=== PATIENT | female | born 1990 | race Caucasian/White ===

== ENCOUNTER → 2020-11-25 13:10 | Outpatient (CLI) | payer BC, SELFPAY ==
--- NOTE | ~2020-11-25 | US_ITS ---
US breast LT complete 11/25/2020 13:35 Indication: Palpable left breast mass. Left breast pain for one week. Procedure: High-resolution Limited ultrasound of the left breast Comparison: No prior studies for comparison. Findings: No discrete mass identified in the area of palpable concern at 4:00. At 12:00, 7 cm from th e nipple, there is an 8 mm intramammary lymph node. Impression: 1: No sonographic evidence for malignancy in the left breast. No correlate to palpable abnormality. BI-RADS CATEGORY 2 - BENIGN FINDINGS Reviewed, dictated and finalized at location A. UNICATION COORDINATOR Impression: 1: No sonographic evidence for malignancy in the left breast. No correlate to p alpable abnormality. BI-RADS CATEGORY 2 - BENIGN FINDINGS
== END ==
PROVIDERS: Visit Provider Obstetrics & Gynecology Gynecology
DX: N63.23 Unspecified lump in the left breast, lower outer quadrant (principal)
CPT/HCPCS: 76641

== ENCOUNTER 2021-08-11 10:07 | Outpatient (RCR) | payer BC, SELFPAY | END 2021-11-09 23:59 | disposition home or self-care (01) | LOC: ANHLAB 10:07 | PROVIDERS: PCP Nurse Practitioner; Visit Provider Obstetrics & Gynecology Gynecology | DX: O26.851 Spotting complicating pregnancy, first trimester (principal); Z3A.00 Weeks of gestation of pregnancy not specified | CPT/HCPCS: 36415; 84702 ==

== ENCOUNTER 2021-08-11 10:52 | Emergency (ER) | payer BC, SELFPAY ==
--- NOTE | ~2021-08-11 | US_ITS ---
EXAMINATION: US OB <= 14 weeks fetus EXAM DATE: 08/11/2021 13:59 INDICATION: , vaginal bleeding. 1st trimester. TECHNIQUE: Pelvic obstetrical transabdominal sonogram was performed by a technologist. There are mu ltiple grayscale and Doppler images available for interpretation. There are no earlier studies of th is gestation for comparison. FINDINGS: Uterus measures 9.3 x 5.3 x 4.0 cm. There is intrauterine gestation sac. The 5 mm mean sa c diameter corresponds to estimated gestational age by ultrasound of 5 weeks 0 days. Yolk sac is bob ntified. No pole identified at this time. There is no sonographic evidence of subchorionic hemo rrhage. Left ovary morphologically normal, right not identified. Small to moderate free pelvic flu id in the cul-de-sac. IMPRESSION: Intrauterine gestation sac. No pole identified, or would be expected for gestation sac this small. Consider 2 week follow-up pelvic sonogram. Reviewed, dictated and finalized at location B. IMPRESSION: Intrauterine gestation sac. No pole identified, or would be expected for gestation sac this small. Consider 2 week follow-up pelvic sonogrrobbin churchill
[2021-08-11 11:00] VITALS: BP 142/107; PULSE 84; RESP 20; TEMP 36.9; O2SAT 100
[2021-08-11 11:16] VITALS: BP 109/84; PULSE 97; RESP 18; O2SAT 100
[2021-08-11 11:45] LABS: Add Urine Microscopic? YES; Appearance Urine Clear (Clear); Bacteria Urine Trace /hpf; Bilirubin Urine Negative (Negative); Blood Urine 2+ (Negative); Color Urine Straw (Yellow); Glucose Urine UA Negative (Negative); Ketones Urine Negative (Negative); Leukocyte Esterase Ur Negative LEU/UL (Negative); Nitrate Urine Negative (Negative); Protein Urine Negative (Negative); RBC Urine 0-2 /hpf (0-2); Specific Grav Ur 1.005 (1.001-1.035); Urobilinogen Urine Negative mg/dL (<2.0); WBC Urine 0-3 /hpf
[2021-08-11 12:08] LABS: Basophils Absolute Auto 0.1 K/mm3 (0.0-0.1); Basophils Percent Auto 0.6 % (0.2-1.2); Eosinophils Absolute Auto 0.2 K/mm3 (0-0.3); Eosinophils Percent Auto 1.9 % (0-4.4); Hematocrit 42.6 % (37.0-47.0); Immature Granulocyte Absolute 0.01 K/mm3 (0.00-0.031); Immature Granulocyte Percent A 0.1 % (0-0.5); Lymphocytes Absolute Auto 2.39 K/mm3 (0.9-3.2); Lymphocytes Percent Auto 28.5 % (18.3-44.2); Mean Corpuscular HGB Conc 32.9 g/dl (32-36); Mean Corpuscular Hemoglobin 29.9 pg (26-34); Mean Corpuscular Volume 90.8 fl (80-100); Monocytes Absolute Auto 0.6 K/mm3 (0.1-0.6); Monocytes Percent Auto 7.4 % (2.6-8.5); Neutrophils Absolute Auto 5.2 K/mm3 (1.3-6.7); Neutrophils Percent Auto 61.5 % (45.5-73.1); Platelet Count Result 225 k/mm3 (150-375); Red Blood Count 4.69 M/mm3 (4.2-5.4); Red Cell Distribution Width 12.6 % (11.5-14.5); White Blood Count 8.4 K/mm3 (4.5-10.0)
--- NOTE | 2021-08-11 12:34 | PC.NURSE ---
Pelvic exam completed by Dr Barrett. RN at bedside during exam.
--- NOTE | 2021-08-11 12:51 | PC.NURSE ---
Called lab to request add on of beta HCG
--- NOTE | 2021-08-11 12:56 | PC.NURSE ---
Patient drinking water in anticipation for US. Instructed not to void prior to test.
--- NOTE | 2021-08-11 13:12 | ED.FEMALEGU ---
HPI - Female Genitourinary General Chief complaint: Vaginal Bleeding Stated complaint: 5Weeks , spotting Time Seen by Provider: 08/11/21 11:20 Source: patient Mode of arrival: ambulatory Limitations: no limitations History of Present Illness HPI Narrative: 31-year-old female G2, P1 Believed to be about 5 weeks by dates Had some light vaginal spotting or brownish discharge this morning No significant urinary symptoms but has some mild poorly localized crampy discomfort She contacted her OB office and they got some labs ordered which are not yet returned Related Data Home Medications Medication Instructions Recorded Confirmed cholecalciferol (vitamin D3) PO 07/21/21 docosahexaenoic acid 200 mg capsule mg PO 07/21/21 Allergies Allergy/AdvReac Type Severity Reaction Status Date / Time Sulfa (Sulfonamide Allergy Unknown Itching Verified 08/11/21 11:21 Antibiotics) Review of Systems Review of Systems: All systems reviewed & are unremarkable except as noted in HPI and below Constitutional: Constitutional: Reports no additional constitutional complaints, Denies chills, Denies fever(s) and Denies headache(s) ENT: Denies headache(s) Cardiovascular: Cardiovascular: Denies dyspnea Gastrointestinal: Gastrointestinal: Reports abdominal pain, Denies diarrhea, Denies nausea and Denies vomiting Genitourinary: Genitourinary: Reports abnormal vaginal bleeding, Denies urinary frequency, Denies nocturia and Denies dysuria Musculoskeletal: Musculoskeletal: Denies deformity and Denies numbness Integumentary/Breasts: Skin/Breast: Denies wounds [facility] Social History Social History (Updated 07/21/21 @ 13:10 by Brianna Moore, [facility]) Smoking status: Never smoker Alcohol intake: current Substance use: never Exam Const: General: cooperative, healthy appearing, no acute distress and alert Orientation/consciousness: patient oriented x3 (alert) HENMT: Head: normal to inspection, normocephalic and atraumatic Ears: external ears normal Eyes: Conjunctivae: conjunctivae normal EOM: EOMs intact bilaterally Neck: Neck: supple and no JVD Resp: Effort & Inspection: normal respiratory effort and not labored Auscultation: other (BS =) GI: GI Palp: Yes Soft to palpation and No Tenderness to palpation present (GI) : Speculum Exam - Cervix: normal appearance of the cervix and Cervical os closed Other: Small amount of brownish discharge, no bleeding or tissue from os Skin: General skin exam: normal color and no rashes or lesions noted Neuro: General: patient oriented x3 (alert) Speech: normal speech Psych: Affect: normal affect Course Vital Signs Vital signs: Vital Signs Temperature 36.9 C 08/11/21 11:00 Pulse Rate 84 08/11/21 11:00 Respiratory Rate 20 08/11/21 11:00 Blood Pressure 142/107 H 08/11/21 11:00 Pulse Oximetry 100 08/11/21 11:00 Temperature 36.9 C 08/11/21 11:00 Pulse Rate 85 08/11/21 14:03 Respiratory Rate 18 08/11/21 14:03 Blood Pressure 103/73 08/11/21 14:03 Pulse Oximetry 100 08/11/21 14:03 MDM - Female Genitourinary Lab Data Result diagrams: 08/11/21 12:01 Labs: Lab Results 08/11/21 08/11/21 08/11/21 Range/Units 11:26 12:01 12:20 WBC 8.4 (4.5-10.0) K/mm3 RBC 4.69 (4.2-5.4) M/mm3 Hgb 14.0 (12.0-15.0) g/dL Hct 42.6 (37.0-47.0) % MCV 90.8 (80-100) fl MCH 29.9 (26-34) pg MCHC 32.9 (32-36) g/dl RDW 12.6 (11.5-14.5) % Plt Count 225 (150-375) k/mm3 MPV 10.0 (7.4-10.4) fl Immature Gran % (Auto) 0.1 (0-0.5) % Neut % (Auto) 61.5 (45.5-73.1) % Lymph % (Auto) 28.5 (18.3-44.2) % [place]away % (Auto) 7.4 (2.6-8.5) % Eos % (Auto) 1.9 (0-4.4) % Baso % (Auto) 0.6 (0.2-1.2) % Lymph # (Auto) 2.39 (0.9-3.2) K/mm3 Callaway # (Auto) 0.6 (0.1-0.6) K/mm3 Eos # (Auto) 0.2 (0-0.3) K/mm3 Baso # (Auto) 0.1 (0.0-0.1) K/mm3 Abs
--- NOTE | 2021-08-11 13:49 | PC.NURSE ---
Pt had beta HCG result from 10:45 this morning. Duplicate order cancelled.
[2021-08-11 14:03] VITALS: BP 103/73; PULSE 85; RESP 18; O2SAT 100
== END 2021-08-11 15:09 | disposition home or self-care (01) ==
PROVIDERS: Emergency Medicine; Emergency Provider Emergency Medicine; PCP Nurse Practitioner
DX: O20.0 Threatened abortion (principal); Z3A.01 Less than 8 weeks gestation of pregnancy
CPT/HCPCS: 36415; 76801; 81001; 85025; 85461; 99284

== ENCOUNTER 2021-08-19 15:38 | Outpatient (CLI) | payer BC, SELFPAY | END 2021-08-19 15:39 | disposition home or self-care (01) | LOC: ANHLAB 15:40 | PROVIDERS: PCP Nurse Practitioner; Visit Provider Obstetrics & Gynecology Gynecology | DX: O26.851 Spotting complicating pregnancy, first trimester (principal); Z3A.00 Weeks of gestation of pregnancy not specified | CPT/HCPCS: 36415; 84702 ==

== ENCOUNTER → 2021-09-02 14:16 | Outpatient (CLI) | payer BC, SELFPAY ==
--- NOTE | ~2021-09-02 | US_ITS ---
EXAMINATION: US OB transvaginal DATE: 09/02/2021 14:54 INDICATION: Early . viability. TECHNIQUE: Real-time transabdominal and transvaginal pelvic ultrasound was performed. COMPARISON: Ultrasound 08/11/2021 FINDINGS: TRANSABDOMINAL ULTRASOUND: The uterus measures 10.1 x 5.2 x 5.8 cm. TRANSVAGINAL ULTRASOUND: There is an intrauterine gestational sac. A yolk sac is identified. The fet al crown rump length measures 1.7 cm, which correlates with an estimated gestational age of 8 weeks a nd 1 day(s) (+/-) 5 day(s). heart motion is identified measuring 170 beats per minute (bpm) by M-mode Doppler. The right ovary is not visualized. The left ovary measures 2.8 x 2.2 x 3.1 cm. There is no free fluid in the pelvis. IMPRESSION: 1. Single living intrauterine gestation with estimated date of delivery of 04/13/22. Reviewed, dictated and finalized at location A. IMPRESSION: 1. Single living intrauterine gestation with estimated date of delivery of 03/28 06/18.
== END ==
PROVIDERS: Visit Provider Obstetrics & Gynecology Gynecology
DX: O36.80X0 Pregnancy with inconclusive fetal viability, not applicable or unspecified (principal); Z3A.00 Weeks of gestation of pregnancy not specified
CPT/HCPCS: 76817

== ENCOUNTER → 2021-11-10 08:21 | Outpatient (CLI) | payer BC, SELFPAY ==
--- NOTE | ~2021-11-10 | US_ITS ---
EXAMINATION: US OB /maternal detail EXAM DATE: 11/10/2021 08:49 INDICATION: anatomy. 2nd trimester. TECHNIQUE: Pelvic obstetrical transabdominal sonogram was performed by a technologist. There are mu ltiple grayscale and Doppler images available for interpretation. Comparison is made to prior examina tion from 08/11/2021. FINDINGS: There is a single fetus identified in variable presentation with a heart rate of 157 beats per minute. The placenta is located in the anterior position. There is no sonographic evidence of re troplacental hemorrhage identified. There is subjectively expected amount of amniotic fluid. BIOMETRIC DATA: Biparietal diameter (BPD): 4.0 cm ----------------> 18 weeks 1 day. Head circumference (HC): 15.6 cm ----------------> 18 weeks 4 days. Abdominal circumference (AC): 13.2 cm ----------> 18 weeks 5 days. Femur length (FL): 2.7 cm --------------------------> 18 weeks 2 days. These measurements are concordant. HC/AC ratio is 1.18 (The 5th -- 95th percentile range is 1.08-1.27. Estimated weight is 243 g +/- 36 g. This is the 76 percentile when the currently reported [facility] gestation age 18 weeks 0 days, clinical estimated date of delivery (АННА-OPE) 04/13 is used. estimated gestational age based on measurements from this exam is 18 weeks 3 days, with an estimated date of delivery (АННА-AUA) 04/10. ANATOMIC SURVEY: The following anatomy is identified and is sonographically normal in appearance: Cerebral ventricles Cavum septum pellucidum Cerebellum Cisterna magna Nuchal fold CTL-spine Four-chamber heart Cardiac outflow tracts Diaphragm Stomach Kidneys Bladder Three-vessel cord Cord insertion Extremities Nose/lips IMPRESSION: 1. Single fetus in vertex presentation with heart rate 157 beats per minute. 2. Estimated weight of 243 grams, 76th percentile using the currently reported clinical gestat ion age of 18 weeks 0 days, АННА(OPE) 04/13. 3. Normal anatomic survey. Reviewed, dictated and finalized at location B. SHER AND BUFFER IMPRESSION: 1. Single fetus in vertex presentation with heart rate 157 beats per minute. 2. Estimated weight of 243 grams, 76th percentile using the currently re ported clinical gestation age of 18 weeks 0 days, АННА(OPE) 04/13. 3. Normal anatomic survey.
== END ==
PROVIDERS: Visit Provider Obstetrics & Gynecology Gynecology
DX: Z36.9 Encounter for antenatal screening, unspecified (principal); Z3A.18 18 weeks gestation of pregnancy
CPT/HCPCS: 76805

== ENCOUNTER 2024-05-15 09:15 | Outpatient (RCR) | payer BC, SELFPAY ==
--- NOTE | 2024-04-17 10:26 | OPREHPOC ---
Outpatient Therapy Plan of Care This is a Multidisciplinary Plan of Care that may contain components documented by all disciplines (PT, OT, and ST.) PT Problem 1 PT Problem #1 Knowledge Deficit PT Goal 1 Goal 1. Patient will perform independent HEP Target Visit 5 PT Problem 2 PT Problem #2 Impaired Strength PT Goal 1 Goal 1. Improve pelvic floor strength to 4/5 to decrease stress incontinence Target Visit 5 PT Problem 3 PT Problem #3 Impaired Functional ADLs PT Goal 1 Goal 1. Patient will report no urinary incontinence for at least 4 weeks Target Visit 5
--- NOTE | 2024-04-17 10:26 | PTOPEVAL1 ---
Assessment and note entered by Linda Fuentes DPT Evaluation Information Assessment Status Evaluation Subjective Information Pt reports urinary incontinence since having her son 2 years ago and also notices gas incontinence. Makes sure to void before doing activities like jumping or bike riding otherwise will dribble . Voids less than 10 times a day, none at night. Can hold urge as long as needed. Denies pain with urination. Incontinence a couple times throughout the week, not daily. BM most days of the week, no pain. Denies history of pelvic pain other than mild after her second child. Pt has been 2 times, both vaginal deliveries with grade 2 and grade 4 tears. No other complications. No incontinence prior to her second . No other WEDDING DECORATOR or b/b history. Patient goal: strengthen my pelvic floor, improve things before considering a third No return to MD scheduled currently. Reported Pain Level Pain Score 0: Self Report Assessment PT Clinical Summary The patient is presenting to skilled therapy with a history of stress urinary incontinence for 2 years following a vaginal delivery and grade 4 tear. She presents with decreased pelvic floor strength and decreased hip/core strength which are contributing to her incontinence. She will highly benefit from therapy to address these impairments in order to return to prior level. Plan of Care Interventions Manual Therapy,Neuro Re-education,Patient/ Caregiver Education,Therapeutic Activities, Therapeutic Exercise PT Services Indicated Yes Treatment Frequency and 1 time a week for 5 visits Duration These treatments will address the objective and functional deficits as defined above. The patient will be advanced safely and appropriately in order for the patient to progress towards his/her prior level of function. Additional exercises will be introduced and as well as a comprehensive home exercise program upon discharge, if needed, ?to ensure carryover of functional gains achieved in the clinic. This treatment plan has been reviewed and agreement upon by the patient.
--- NOTE | 2024-05-01 09:06 | PCPTNOTE ---
Patient called to cancel appointment for 05/01/24 due to illness.
--- NOTE | 2024-05-15 09:44 | OPREHPOC ---
Outpatient Therapy Plan of Care This is a Multidisciplinary Plan of Care that may contain components documented by all disciplines (PT, OT, and ST.) PT Problem 1 PT Problem #1 Knowledge Deficit PT Goal 1 Goal 1. Patient will perform independent HEP Target Visit 5 Progress Met PT Problem 2 PT Problem #2 Impaired Strength PT Goal 1 Goal 1. Improve pelvic floor strength to 4/5 to decrease stress incontinence Target Visit 5 Progress Met PT Problem 3 PT Problem #3 Impaired Functional ADLs PT Goal 1 Goal 1. Patient will report no urinary incontinence for at least 4 weeks Target Visit 5 Progress Partially Met
--- NOTE | 2024-05-15 09:44 | PTOPDC ---
Assessment and note entered by Linda Fuentes DPT Evaluation Information Assessment Status Discharge Subjective Information Pt reports improvements with therapy. No incontinence in the last week. No issues with urinary frequency or ability to hold. Pt reports improvements with her core strength as well. Reported Pain Level Pain Score 0: Self Report Assessment PT Clinical Summary The patient has made excellent progress in therapy . She reports no incontinence over the last week and improvements in her strength. She demonstrates improved LE and pelvic floor strength as well as NARCISO closure. Due to her progress and independence with HEP, plan for discharge at this time. She has been educated in a thorough HEP and to follow up with MD and/or PT as needed. Plan of Care PT Services Indicated No
== END 2024-05-15 11:50 | disposition home or self-care (01) ==
LOC: ANHPT 09:15
DX: N39.3 Stress incontinence (female) (male) (principal)
CPT/HCPCS: 97112; 97161; 97530